=== PATIENT | male | born 1960 | race Hispanic/Latino ===

== ENCOUNTER → 2021-04-21 | Outpatient (CLI) | payer BC | END | disposition home or self-care (01) | LOC: RAH 10:10 | PROVIDERS: ATTEND Internal Medicine | DX: M79.661 Pain in right lower leg (principal); M79.662 Pain in left lower leg | CPT/HCPCS: 72100 ==

== ENCOUNTER → 2024-08-25 | Outpatient (CLI) | payer BC, OTHER ==
--- NOTE | 2024-08-25 11:14 | HMCIMG ---
MR SPINAL CANAL, LUMBAR WO CON HISTORY: Pain COMPARISON: None TECHNIQUE: MRI of the lumbar spine was performed utilizing multiple pulse sequences in axial , coronal and sagittal plane. Patient was not given contrast through intravenous route. FINDINGS: No abnormal signal intensity is seen of the visualized bony structure. No loss of vertebral height is seen. There is straightening of normal lumbar curvature which may be related to muscle spasm or positioning. Degenerative disc signals are present at all cervical spine levels. Visualized distal conus is unremarkable. At the L2-3 level, there is minimal annular disc bulge causing anterior thecal sac compression with bilateral lateral recess stenosis without associated neural foraminal stenosis. The thecal sac measures approximately 8 mm in its anterior posterior dimension. At the L3-4 level, there is minimal annular disc bulge causing anterior thecal sac compression with bilateral lateral recess stenosis without associated neural foraminal stenosis. The thecal sac measures approximately 9 mm in its anterior posterior dimension. At the L4-5 level, there is minimal annular disc bulge with central disc protrusion causing anterior thecal sac compression with bilateral lateral recess stenosis without associated neural foraminal stenosis. The thecal sac measures approximately 7.6 mm in its anterior posterior dimension. IMPRESSION: 1. DJD with mild lumbar spine spondylosis as described above.
== END | disposition home or self-care (01) ==
LOC: RAH 09:13
PROVIDERS: ATTEND Internal Medicine
DX: M47.816 Spondylosis without myelopathy or radiculopathy, lumbar region (principal); M79.606 Pain in leg, unspecified
CPT/HCPCS: 72148